=== PATIENT | female | born 1955 | race Caucasian/White ===

== ENCOUNTER 2017-03-05 09:32 | Emergency (ER) | payer BC ==
[~2017-03-05] VITALS: Ht 152.4 cm; Wt 65.3 kg
[2017-03-05] MEDS ORDERED: FLONASE16 GM NS (10:57)
[2017-03-05] MEDS ORDERED: ZANTAC300 MG PO (10:57)
[2017-03-05] MEDS ORDERED: PRILOSEC OTC20 MG PO (10:57)
[2017-03-05] MEDS ORDERED: SINGULAIR4 M1 PO (10:57)
[2017-03-05] MEDS ORDERED: NORFLEX100MG PO (13:59)
[2017-03-05] MEDS ORDERED: DICLOFENAC SODI50 MG PO (13:59)
[2017-03-05] MEDS ORDERED: MEDROLPACK PO (13:59)
== END 2017-03-05 14:28 | disposition home or self-care (01) ==
LOC: ER 09:32
DX: M54.5 Low back pain (principal)